=== PATIENT | male | born 1965 | race African-American/Black ===

== ENCOUNTER 2024-08-20 10:27 | Emergency (ER) | payer MEDICAID ==
[~2024-08-20] VITALS: Ht 188 cm; Wt 100.0 kg
[2024-08-20 10:47] VITALS: TEMP 98.5
[2024-08-20 10:52] LABS: COVID AG,FIA SOURCE NASAL SWAB
[2024-08-20 11:11] LABS: SARS-COV2 (COVID) ANTIGEN,FIA Negative (Negative)
[2024-08-20 11:38] LABS: INFLUENZA TYPE A POSITIVE FOR TYPE A (NEGATIVE)
[2024-08-20 11:39] LABS: INFLUENZA TYPE B NEGATIVE FOR TYPE B (NEGATIVE)
[2024-08-20] MEDS ORDERED: BENZ-227 PO (12:03)
[2024-08-20] MEDS ORDERED: ACET-66 PO (12:04)
[2024-08-20 12:34] VITALS: BP 139/96; PULSE 75; RESP 18; O2SAT 96
== END 2024-08-20 12:34 | disposition home or self-care (01) ==
LOC: EMS 10:35
DX: J11.1 Influenza due to unidentified influenza virus with other respiratory manifestations (principal); I10 Essential (primary) hypertension; F17.210 Nicotine dependence, cigarettes, uncomplicated; E78.5 Hyperlipidemia, unspecified; Z20.822 Contact with and (suspected) exposure to COVID-19
CPT/HCPCS: 87804; 99283